=== PATIENT | female | born 1955 | race Caucasian/White ===

== ENCOUNTER → 2017-07-12 13:01 | Outpatient (CLI) | payer MEDICARE, SELFPAY ==
--- NOTE | 2017-07-12 13:04 | BI_ITS ---
MAMMOGRAPHY - BILATERAL SCREENING REASON FOR EXAM: Female, 62 years old. Routine annual screening examination. PERTINENT HISTORY: Mother with breast cancer. History of prior bilateral breast reduction. TECHNIQUE: Digital bilateral breast juliana (3D mammographic acquisition) in the CC and MLO projections. 2-D mediolateral oblique (MLO) and craniocaudad (CC) views of both breasts were obtained. CAD: Full Field Digital Mammography with Computer Added Detection was performed. COMPARISON: Comparison is made with prior study dated February 07, 2016 and February 08, 2015. FINDINGS: Breast Composition: The breasts are heterogeneously dense, which may obscure small masses. There are no dominant masses or suspicious calcifications. No other significant abnormalities are identified. There has been no significant change since the prior study. BI/SCREENING MAMM (CAD), BILAT IMPRESSION: Stable bilateral screening mammogram. Yearly follow-up mammogram recommended. (A) ASSESSMENT CATEGORY: BIRADS Category 1: Negative. A letter regarding these results will be sent to the patient by the facility within 30 days. Approximately 10% of breast cancers are not detected by mammography. A normal mammogram should not delay biopsy of a clinically suspicious abnormality. [id number] Electronically Signed: Bud Ernst MD at 14:17 EDT Tel [phone], Service support ,
== END ==
PROVIDERS: Family Provider Family Medicine; PCP Family Medicine; Visit Provider Family Medicine
DX: Z12.31 Encounter for screening mammogram for malignant neoplasm of breast (principal)
CPT/HCPCS: 77063; 77067

== ENCOUNTER → 2017-08-11 15:58 | Outpatient (CLI) | payer MEDICARE, SELFPAY | PROVIDERS: Family Provider Family Medicine; PCP Family Medicine; Visit Provider Otolaryngology Otolaryngology/Facial Plastic Surgery | DX: J02.9 Acute pharyngitis, unspecified (principal) | CPT/HCPCS: 87070; 87077 ==

== ENCOUNTER → 2018-08-08 | Outpatient (CLI) | payer MEDICARE, SELFPAY ==
--- NOTE | 2018-08-08 16:05 | BI_ITS ---
MAMMOGRAPHY - BILATERAL SCREENING REASON FOR EXAM: Female, 63 years old. Routine annual screening examination. PERTINENT HISTORY: Mother with breast cancer. Remote bilateral breast reduction surgery. TECHNIQUE: Digital bilateral breast maritza (3D mammographic acquisition) in the CC and MLO projections. 2-D mediolateral oblique (MLO) and craniocaudad (CC) views of both breasts were obtained. CAD: Full Field Digital Mammography with Computer Added Detection was performed. COMPARISON: Comparison is made with prior study dated July 12, 2017 and February 07, 2016. FINDINGS: Breast Composition: The breasts are heterogeneously dense, which may obscure small masses. There are no dominant masses or suspicious calcifications. Stable small benign-appearing bilateral axillary lymph nodes. No other significant abnormalities are identified. There has been no significant change since the prior study. BI/SCREEN MAMM (CAD) W/MARITZA BILAT IMPRESSION: Stable bilateral screening mammogram. Yearly follow-up mammogram recommended. (A) ASSESSMENT CATEGORY: BIRADS Category 2: Benign. A letter regarding these results will be sent to the patient by the facility within 30 days. Approximately 10% of breast cancers are not detected by mammography. A normal mammogram should not delay biopsy of a clinically suspicious abnormality. [id number] Electronically Signed: Bud Ernst, at 9:11 EDT , Service support ,
== END | disposition home or self-care (01) ==
LOC: OPBI 16:03
PROVIDERS: Family Provider Family Medicine; PCP Family Medicine; Referring Provider Family Medicine; Visit Provider Family Medicine
DX: Z12.31 Encounter for screening mammogram for malignant neoplasm of breast (principal)
CPT/HCPCS: 77063; 77067

== ENCOUNTER → 2019-08-24 | Outpatient (CLI) | payer MEDICARE, SELFPAY ==
--- NOTE | 2019-08-24 14:35 | BI_ITS ---
MAMMOGRAPHY - BILATERAL SCREENING 3-D TOMOSYNTHESIS REASON FOR EXAM: Female, 64 years old. Routine screening PERTINENT HISTORY: BILAT SCREENING - FAM HX OF MOTHER @ AGE 62 - BILAT REDUCTION 2005 - PT C/O LT BREAST OCCASIONAL PAIN FOR SEVERAL YRS. TECHNIQUE: 2-D mammograms and 3-D Tomosynthesis of the breast (s) were performed. CAD was performed. COMPARISON: 08/08/2018 FINDINGS: The breast composition is heterogeneously dense that can obscure small breast masses. Scattered benign calcifications are seen. No dense spiculated masses or suspicious microcalcifications are identified. No architectural distortion is identified. There is no skin thickening or retraction. There has been no significant change since the prior study. BI/SCREEN MAMM (CAD) W/MARITZA BILAT IMPRESSION: No mammographic signs of malignancy. Routine yearly mammograms recommended. ASSESSMENT CATEGORY: BIRADS Category 2: Benign. A letter regarding these results will be sent to the patient by the facility within 30 days. FOLLOW UP RECOMMENDATION: Yearly follow up mammogram recommended. (A) Approximately 10% of breast cancers are not detected by mammography. A normal mammogram should not delay biopsy of a clinically suspicious abnormality. Electronically Signed: Yves Roth MD at 15:30 EDT , Service support ,
== END | disposition home or self-care (01) ==
LOC: OPBI 14:33
PROVIDERS: PCP Family Medicine; Referring Provider Student in an Organized Health Care Education/Training Program; Visit Provider Student in an Organized Health Care Education/Training Program
DX: Z12.31 Encounter for screening mammogram for malignant neoplasm of breast (principal)
CPT/HCPCS: 77063; 77067

== ENCOUNTER 2020-01-19 07:25 | Day surgery (SDC) | payer MEDICARE, SELFPAY ==
[2020-01-19] VITALS (7 sets, daily range): BP systolic 108–124; BP diastolic 50–101; PULSE 49–60; RESP 16–18; TEMP 36.3–36.9; O2SAT 93–97; BMI 38.8
--- NOTE | 2020-01-19 06:21 | HP_ITS ---
I have re-examined the patient. There are no clinical changes since date of exam. Intake Intake Visit Reasons: Bilat wrists Accompanied by: self Is patient in pain?: Yes Allergies codeine Allergy (Verified 02/18/16 00:23) Chest tightness morphine Allergy (Verified 02/18/16 00:23) Hives NSAIDS (Non-Steroidal Anti-Inflamma Allergy (Verified 02/18/16 00:23) Hives prochlorperazine [From Compazine] Allergy (Verified 02/18/16 00:23) Other promethazine [From Phenergan] Allergy (Verified 02/18/16 00:23) Chest tightness Sulfa (Sulfonamide Antibiotics) Allergy (Verified 02/18/16 00:23) Hives amoxicillin [From Augmentin] Adverse Reaction (Verified 02/18/16 00:23) Abd cramps/diarrhea cephalexin [From Keflex] Adverse Reaction (Verified 02/18/16 00:23) Abd cramps/diarrhea clavulanic acid [From Augmentin] Adverse Reaction (Verified 02/18/16 00:23) Abd cramps/diarrhea steroid injections Adverse Reaction (Severe, Uncoded 01/02/20 14:00) migraines Medications Aspirin 81 mg PO DAILY 02/18/16 [History Confirmed 01/02/20] Calcium 600-Vit D3 200 Tablet 1 tab PO DAILY 02/18/16 [History Confirmed 01/02/20] Colostrum, Bovine [Colostrum] 650 mg PO BID 02/18/16 [History Confirmed 01/02/20] Cyanocobalamin (Vitamin B-12) [Vitamin B-12] 1,000 mcg PO DAILY 02/18/16 [History Confirmed 01/02/20] Flaxseed Oil [[place]-3 Flaxseed Oil] 1,000 mg PO BID 02/18/16 [History Confirmed 01/02/20] Fluoxetine [Prozac] 20 mg PO BID 02/18/16 [History Confirmed 01/02/20] Folic Acid 0.8 mg PO DAILY 02/18/16 [History Confirmed 01/02/20] Lansoprazole [Prevacid] 30 mg PO BID 02/18/16 [History Confirmed 01/02/20] Levothyroxine Sodium [Levoxyl] 75 mcg PO DAILY 02/18/16 [History Confirmed 01/02/20] Lorazepam [Ativan] 0.5 mg PO DAILY PRN PRN 02/18/16 [History Confirmed 01/02/20] Ondansetron [Zofran Odt] 4 mg PO Q8H PRN PRN #10 tab 02/18/16 [Rx Confirmed 01/02/20] Orphenadrine [Norflex ER] 100 mg PO BID 02/18/16 [History Confirmed 01/02/20] Pregabalin [Lyrica] 100 mg PO 4X/DAY 02/18/16 [History Confirmed 01/02/20] [place] Jelly 500 mg PO BID 02/18/16 [History Confirmed 01/02/20] Zolpidem Tartrate [Ambien] 10 mg PO QHS 02/18/16 [History Confirmed 01/02/20] cycloBENZAPRine HCl [Flexeril] 10 mg PO TID PRN PRN 02/18/16 [History Confirmed 01/02/20] PFSH Medical History (Updated 01/02/20 @ 13:15 by Beth Gibbons) Anxiety (Acute) Difficulty sleeping (Acute) Hx of cataract (Acute) Hypothyroidism (Acute) Social History (Updated 01/02/20 @ 14:[address] Hayde Wilkes DO) Smoking Status: Former smoker HPI Bilat wrists: Surgical H&P: Yes Details: Parts of this documentation were recorded by a scribe, this documentation accurately reflects the service provided and the decisions made by me, Dr. Hayde Wilkes DO 01/02/20 1307. MATTIE BERMEO is a 64 year old F here today for BL wrist pain. She had an EMG completed at [facility] on 12/21/2019 and is here to review the results today. Her results showed moderate carpal tunnel on the right and mild on the left. Patient states that she has numbness and tingling into her BL hands into all of her fingers. She tried night splinting but can not sleep at night with the splints on. Does have weakness of her hands and drops things. Denies any surgery or injections of the wrists. States that she is unable to have steroid injections because they cause migraines. ROS Const Reports weakness Musc Denies joint pain, Denies joint swelling, Reports numbness, Reports radiating pain into limb, Reports tingling Skin/Breast Denies redness, Denies lesions, Denies itching, Denies rash, Denies skin swelling Neuro Yes numbness, Yes tingling, Yes weakness Ortho Exam General General: Yes no acute distress Neurologic: Yes alert, Yes oriented x3 Psychologic: Yes reasonable and appropriate Right Wrist/Hand Skin/Wound: No Swelling, No Ecchymosis, Yes capillary refill normal Right Wrist: Yes ROM-Extension 0-60, ROM-Flexion 0-80, ROM-Pronation 0-80, ROM- Supination 0-90, Tinel's, Phalen's and Thenar Atrophy Left Wrist/Hand Skin/Wound: No Swelling, No Ecchymosis, Yes capillary refill normal Left Wrist: Yes ROM-Extension 0-60, Yes ROM-Flexion 0-80, Yes ROM-Pronation 0- 80, Yes ROM-Supination 0-90, Yes Tinel's and Yes Phalen's; no Thenar Atrophy Assessment & Plan Problems 1. Bilateral carpal tunnel syndrome G56.03 Plan Personally reviewed patient EMG of the BL upper extremities. Patient educated that she does have moderate carpal tunnel syndrome of the right and mild on the left. Treatment options are OT or night bracing or injection but this is not recommended because of her migraines or carpal tunnel release. Educated that the recovery period will take about 4 weeks. She will be in a bandage for 2 weeks then she can begin lifting as tolerated. Patient wishes to proceed with right carpal tunnel release. Reviewed the pre-operative plans with the patient. Risks and benefits of the procedure were fully explained, including but not limited to infection, neurovascular injury, continued pain, arthritis, stiffness, need for further surgery, re-injury, DVT, PE, general risks of anesthesia, and loss of limb or life. The patient understands all the risks and does wish to proceed with written consent. We discussed the current risk associated COVID-19. While it is understood that there is a community spread of COVID 19 the risk of veronika COVID-19 while at [facility] is very low, however, the risk cannot be completely mitigated because of the community spread of the disease. We discussed in detail the risk of exposure to and or potential harm posed by the COVID-19 virus with having a surgery/procedure at this time versus the risk of delaying the surgery/procedure. Is not possible to know either the risk of delaying the surgery procedure or chance of getting an infection with perfect accuracy, but a joint decision was made to proceed at this time with a schedule surgery/procedure as indicated on the consent form. Patient was notified that we will need to comply with any screening or testing [facility] wishes to perform or that surgery may be delayed for any positive results. All questions answered. Patient in agreement of plan. Follow up 2 wks postop with sea, or sooner if pain, swelling, numbness or associated symptoms, or concerns develop. Orders Orders: Wrist min 3 Views Today G56.03 Wrist min 3 Views Today G56.03 Coding Level of Care Code Off vis,new,level 3 Diagnoses Bilateral carpal tunnel syndrome G56.03
[2020-01-19] MEDS: Lactated Ringers 1,000 ML 100 ML IV (08:13)
--- NOTE | 2020-01-19 08:46 | PCM.DC.ORTHO ---
Discharge Diet: No Restrictions - leave dressings intact and follow up in 2 weeks, call with concerns Discharge Activity: May Not Drive May shower in (days): 1 Ice area for (Minutes): 20 - Every hour while awake. Weight Bearing Status: Weight bearing as tolerated Keep extremity elevated above heart level: Operative Extremity Call your doctor if your incision/area has: Continuous Slow Oozing, Sudden Increased Bleeding, Increased Pain/ Swelling, Increased Redness, Foul Smelling Discharge Call your doctor if you observe: Fever of 101 or Higher, Coldness, Increased Pain, Numbness or Tingling, Change in Color, Calf discomfort Allergies/Adverse Reactions: Allergies codeine Allergy (Verified 01/19/20 07:50) Chest tightness levothyroxine sodium [From Synthroid] Allergy (Verified 01/19/20 07:50) Itching morphine Allergy (Verified 01/19/20 07:50) Hives NSAIDS (Non-Steroidal Anti-Inflamma Allergy (Verified 01/19/20 07:50) Hives prochlorperazine [From Compazine] Allergy (Verified 01/19/20 07:50) Other promethazine [From Phenergan] Allergy (Verified 01/19/20 07:50) Chest tightness Sulfa (Sulfonamide Antibiotics) Allergy (Verified 01/19/20 07:50) Hives amoxicillin [From Augmentin] Adverse Reaction (Verified 01/19/20 07:50) Abd cramps/diarrhea azithromycin [From Zithromax] Adverse Reaction (Verified 01/19/20 07:50) Nausea/Vom/Diarrhea cephalexin [From Keflex] Adverse Reaction (Verified 01/19/20 07:50) Abd cramps/diarrhea clavulanic acid [From Augmentin] Adverse Reaction (Verified 01/19/20 07:50) Abd cramps/diarrhea levofloxacin [From Levaquin] Adverse Reaction (Verified 01/19/20 07:50) Vomiting methylprednisolone [From Medrol] Adverse Reaction (Verified 01/19/20 07:50) Hives steroid injections Adverse Reaction (Severe, Uncoded 01/19/20 07:50) migraines Medications to take at Discharge Aspirin 81 mg PO DAILY 02/18/16 Calcium 600-Vit D3 200 Tablet 1 tab PO DAILY 02/18/16 Colostrum, Bovine [Colostrum] 650 mg PO BID 02/18/16 Cyanocobalamin (Vitamin B-12) [Vitamin B-12] 1,000 mcg PO DAILY 02/18/16 Flaxseed Oil [[place]-3 Flaxseed Oil] 1,000 mg PO BID 02/18/16 Fluoxetine [Prozac] 20 mg PO BID 02/18/16 Folic Acid 0.8 mg PO DAILY 02/18/16 Lansoprazole [Prevacid] 30 mg PO BID 02/18/16 Levothyroxine Sodium [Levoxyl] 75 mcg PO DAILY 02/18/16 Lorazepam [Ativan] 0.5 mg PO DAILY PRN PRN 02/18/16 Ondansetron [Zofran Odt] 4 mg PO Q8H PRN PRN #10 tab 02/18/16 Orphenadrine [Norflex ER] 100 mg PO BID PRN 02/18/16 Pregabalin [Lyrica] 100 mg PO 4X/DAY 02/18/16 [place] Jelly 500 mg PO BID 02/18/16 Zolpidem Tartrate [Ambien] 5 mg PO QHS 02/18/16 cycloBENZAPRine HCl [Flexeril] 10 mg PO TID PRN PRN 02/18/16 Cetirizine HCl [Zyrtec] 5 mg PO QHS 01/15/20 Primary Care Physician: Anirudh Villalobos DO [Primary Care Provider] - Test Results: Test results from this visit will be discussed in further detail at your follow-up appointment, if applicable. Please Follow Up With: Hayde Wilkes DO - [phone]
--- NOTE | 2020-01-19 08:46 | PCM.OPRPT ---
Report of Operation Date of Procedure: 01/19/20 Pre-Operative Diagnosis: right carpal tunnel syndrom Post-Operative Diagnosis: same Surgery/Procedure Performed:: right carpal tunnel release Type of Anesthesia:: Austin Villalpando Anesthesiologist: Dany Berry Estimated Blood Loss (mL): min Fluids Replaced: 600cc lr Description of Procedure: Preoperative note Patient is a 64 year old patient with nerve conduction study confirming carpal tunnel syndrome. Patient failed conservative treatment for her carpal tunnel elected proceed with right carpal tunnel release. Risks benefits and alternatives surgery discussed with patient. Risks including but not limited to blood loss, blood clot, infection, neurovascular injury, failure procedure, loss of life and loss of limb. Patient is aware like proceed with right carpal tunnel release. Operative note Patient seen and examined preoperative holding area. right hand was marked. History and physical and consent reviewed. Patient was brought to the operating room placed supine on the operating table. Sign in, anesthesia, antibiotics were administered. right upper extremity was prepped and draped after Austin block was initiated. All bony prominences well-padded SCDs placed on bilateral lower extremities. We marked out our incisions for our carpal tunnel release at the intersection of Cayetano's line in the fourth ray flexed. We extended about a centimeter and a half. Timeout was performed. We then checked ensure that the [place] block was working with pickups which it was. We then used a 15 blade to make a skin incision. We then dissected down tenotomy syllable of the transverse carpal ligament. We then used a new 15 blade cut through the transverse carpal ligament down to the level of the median nerve. We then further released the median nerve the combination of the 15 blade and tenotomies. The nerve was grayish in color and adherent to the transverse carpal ligament volarly. We released the transverse carpal ligament distally to the fat pad and then proximally under standard technique. We then palpated to ensure that we released all of the transverse carpal ligament which we did. We irrigated the incision with copious amounts of sterile saline. All bleeders were coagulated. The incision was closed with interrupted 4-0 nylon stitches. Tourniquet was deflated for total working time of 10 minutes. Patient tolerated procedure well there were no complications. Patient transferred to recovery room in stable condition. Postoperative note Hospital pharmacy has prescription Leave dressing clean dry and intact Follow-up in 2 weeks Call with concerns This note was generated with [employer] software. It may contain incorrect words, spelling, and punctuation that were not noted in checking the note before signing
[2020-01-19] MEDS: Mupirocin Ointment 22gm Tube 1 APPLIC (09:13)
[2020-01-19] MEDS: HYDROcodone Bitartrate/Apap 5/325 Tablet PO (11:12)
== END 2020-01-19 12:25 | disposition home or self-care (01) ==
LOC: SDC 07:25 → AC 07:27
PROVIDERS: PCP Student in an Organized Health Care Education/Training Program; Referring Provider Orthopaedic Surgery; Visit Provider Orthopaedic Surgery
PROC: (CPT 64721; principal; 2020-01-19 08:40)
DX: G56.03 Carpal tunnel syndrome, bilateral upper limbs (principal); F41.9 Anxiety disorder, unspecified; F32.9 Major depressive disorder, single episode, unspecified; E03.9 Hypothyroidism, unspecified; M79.7 Fibromyalgia; K58.9 Irritable bowel syndrome, unspecified; K21.9 Gastro-esophageal reflux disease without esophagitis; G47.30 Sleep apnea, unspecified; G25.81 Restless legs syndrome; G43.909 Migraine, unspecified, not intractable, without status migrainosus; Z78.0 Asymptomatic menopausal state; Z87.19 Personal history of other diseases of the digestive system; Z79.82 Long term (current) use of aspirin; Z79.899 Other long term (current) drug therapy; Z87.891 Personal history of nicotine dependence
CPT/HCPCS: 01810; 64721; 87426; C9803; J7120; A4216; J2405

== ENCOUNTER → 2020-09-03 14:45 | Outpatient (CLI) | payer MEDICARE, SELFPAY ==
--- NOTE | 2020-09-03 14:47 | BI_ITS ---
MAMMOGRAPHY - BILATERAL SCREENING REASON FOR EXAM: Female, 65 years old. Routine annual screening examination. PERTINENT HISTORY: Mother with breast cancer. History of prior bilateral breast reduction surgery. TECHNIQUE: Digital bilateral breast maritza (3D mammographic acquisition) in the CC and MLO projections. 2-D mediolateral oblique (MLO) and craniocaudad (CC) views of both breasts were obtained. CAD: Full Field Digital Mammography with Computer Added Detection was performed. COMPARISON: Comparison is made with prior study dated 08/24/2019 and 08/08/2018. FINDINGS: Breast Composition: The breasts are heterogeneously dense, which may obscure small masses. There are no dominant masses or suspicious calcifications. Stable benign-appearing bilateral axillary lymph nodes. No other significant abnormalities are identified. There has been no significant change since the prior study. BI/SCRN MAMM (CAD)W/MARITZA BILAT IMPRESSION: Stable bilateral screening mammogram. Yearly follow-up mammogram recommended. (A) ASSESSMENT CATEGORY: BIRADS Category 2: Benign. A letter regarding these results will be sent to the patient by the facility within 30 days. Approximately 10% of breast cancers are not detected by mammography. A normal mammogram should not delay biopsy of a clinically suspicious abnormality. [id number] Electronically Signed: Bud Ernst MD at 15:44 EDT , Service support ,
== END ==
PROVIDERS: PCP Student in an Organized Health Care Education/Training Program; Referring Provider Student in an Organized Health Care Education/Training Program; Visit Provider Student in an Organized Health Care Education/Training Program
DX: Z12.31 Encounter for screening mammogram for malignant neoplasm of breast (principal)
CPT/HCPCS: 77063; 77067

== ENCOUNTER → 2021-10-02 | Outpatient (CLI) | payer MEDICARE, SELFPAY ==
--- NOTE | 2021-10-02 14:07 | BI_ITS ---
MAMMOGRAPHY - BILATERAL SCREENING 3-D TOMOSYNTHESIS REASON FOR EXAM: Female, 66 years old. Routine screening PERTINENT HISTORY: Mother with breast cancer, previous reduction surgery.. TECHNIQUE: 2-D mammograms and 3-D Tomosynthesis of the breast (s) were performed. CAD was performed. COMPARISON: 08/24/2019 FINDINGS: The breast composition is composed of scattered fibroglandular density. Scattered benign calcifications are seen. No dense spiculated masses or suspicious microcalcifications are identified. No architectural distortion is identified. There is no skin thickening or retraction. There has been no significant change since the prior study. BI/SCRN MAMM (CAD)W/MARITZA BILAT IMPRESSION: No mammographic signs of malignancy. Routine yearly mammograms recommended. ASSESSMENT CATEGORY: BIRADS Category 2: Benign. A letter regarding these results will be sent to the patient by the facility within 30 days. FOLLOW UP RECOMMENDATION: Yearly follow up mammogram recommended. (A) Approximately 10% of breast cancers are not detected by mammography. A normal mammogram should not delay biopsy of a clinically suspicious abnormality. Electronically Signed: Yves Roth MD at 12:55 EDT ,
== END | disposition home or self-care (01) ==
LOC: OPBI 14:06
PROVIDERS: PCP Student in an Organized Health Care Education/Training Program; Referring Provider Student in an Organized Health Care Education/Training Program; Visit Provider Student in an Organized Health Care Education/Training Program
DX: Z12.31 Encounter for screening mammogram for malignant neoplasm of breast (principal); Z80.3 Family history of malignant neoplasm of breast
CPT/HCPCS: 77063; 77067

== ENCOUNTER 2021-10-23 07:18 | Day surgery (SDC) | payer MEDICARE, SELFPAY ==
--- NOTE | 2021-10-21 13:34 | EKG12_ITS ---
Test Reason : PRE-OP Blood Pressure : / mmHG Vent. Rate : 054 BPM Atrial Rate : 054 BPM P-R Int : 190 ms QRS Dur : 094 ms QT Int : 432 ms P-R-T Axes : 022 008 051 degrees QTc Int : 409 ms Sinus bradycardia Borderline Low voltage QRS Confirmed by NOE VILLANUEVA, BETSY ([id number]), newspaper copy editor ANASTASIA YEH ([id number]) on 10/22/2021 11:30:27 AM Referred By: Kelly Mckeon Confirmed By:BETSY LIU MD
[2021-10-21 14:18] LABS: Hematocrit 40.9 % (37-47); Hemoglobin 13.3 g/dL (12.0-15.0); Mean Corp Hgb Conc 32.5 g/dL (32-36); Mean Corpuscular Hgb 29.2 pg (27.0-32.0); Mean Corpuscular Volume 89.7 fL (81-99); Mean Platelet Vol. 10.4 fl (6.2-12.0); Platelet Count 208 K/mm3 (150-450); RBC Distribution Width CV 14.6 % (11.6-14.6); RBC Distribution Width SD 47.9 fl (35.1-43.9); Red Blood Count 4.56 M/mm3 (4.2-5.4); White Blood Count 5.4 K/mm3 (4.4-11.0)
[2021-10-21 14:56] LABS: Anion Gap 4 (5-15); BUN 23 mg/dL (7-18); BUN/Creat Ratio 18.9 RATIO (10-20); Calcium,Total 9.1 mg/dL (8.5-10.1); Chloride 104 mmol/L (98-107); Creatinine, Serum 1.22 mg/dL (0.55-1.02); EST Glomerular Filtration Rate 47 mL/min (>60); Est Glom Filt Rate - Afr Amer 57 mL/min (>60); Glucose 98 mg/dL (74-106); Potassium 4.1 mmol/L (3.5-5.1); Sodium Level 138 mmol/L (136-145); Thyroid Stim Hormone (TSH) 1.81 uIU/mL (0.358-3.74)
[2021-10-23 07:38] VITALS: BP 127/57; PULSE 64; RESP 16; TEMP 36.4; O2SAT 98; BMI 38.7
[2021-10-23] MEDS: Lactated Ringers 1,000 ML 15 ML IV (07:43)
[2021-10-23] MEDS: Cefazolin 2 GM in 0.9% Normal Saline 100 ML IV (08:56)
--- NOTE | 2021-10-23 09:00 | OP.PCM_ITS ---
Report of Operation Date of Procedure: 10/23/21 Pre-Operative Diagnosis: Interstitial cystitis, urinary urgency, urinary freque ncy Post-Operative Diagnosis: Same Surgery/Procedure Performed:: Pelvic exam under anesthesia, cystoscopy, hydrodistension Surgeon: Kelly Mckeon Type of Anesthesia: General Description of Procedure: The patient is a 66-year-old female with a history of interstitial cystitis has been having increasing bladder pain with urgency and frequency. She presents for evaluation for Hunner's ulcers with pelvic exam under anesthesia's, cystoscopy and possible biopsy versus hydrodistention. Informed consent was obtained. The patient was taken to the operating room and placed on the operating room table. Anesthesia monitored the head, neck, airway, IV access and vital signs throughout the case. Once anesthesia was appropriately administered the patient was placed into dorsolithotomy position was prepped and draped in usual sterile fashion. 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 There is no evidence of pelvic organ prolapse. The cystoscope was inserted through the urethra under direct visualization into the urinary bladder. The bladder mucosa was visualized in its entirety revealing no evidence of Lukas's ulcers, areas of erythema, ulceration, mass or foreign body. The bladder was filled to capacity and allowed to sit for 2 minutes. The bladder was then emptied and measured at 800 cc capacity with no terminal hematuria identified. Upon reentry into the urinary bladder, there were a few glomerulations present. The bladder was then once again filled to capacity and allowed to sit for 2 minutes before being emptied. Capacity was measured to be approximately 850 cc. At this time the pa tient was awakened and taken to the recovery room in good condition. There were no complications during this procedure. Grafts/Implants Used: None Complications None Admit VTE Documentation VTE Present on Admission: Yes VTE Mechan Device Prophylaxis: SCD's VTE Pharm Prophylaxis ordered?: Yes
[2021-10-23 09:31] VITALS: BP 127/57; BP 137/82; PULSE 59; RESP 16; TEMP 36.4; O2SAT 97
[2021-10-23 09:45] VITALS: BP 127/57; BP 127/64; PULSE 55; RESP 16; O2SAT 96
--- NOTE | 2021-10-23 09:50 | DCINST_ITS ---
Discharge Instructions Diet Discharge Diet: No restrictions Activity Discharge Activity: Return to Normal Activity May resume sexual activity in: No Restrictions Dressing / Incision Call your doctor if you observe: Fever of 101 or Higher, Inability to urinate and Inability to have a bowel movement Follow Up Care Please Follow Up With: Kelly Mckeon MD When: call office to be seen in 2 weeks Test Results: Test results from this visit will be discussed in further detail at your follow- up appointment, if applicable. Discharge Plan Admission Attending Provider: Kelly Mckeon Primary Care Provider: Anirudh Villalobos Discharge Orders/Prescriptions Prescriptions: New phenazopyridine [Pyridium] 200 mg tablet 200 mg PO TID PRN PRN (Reason: Bladder Spasms) 7 Days Qty: 30 0RF nitrofurantoin monohyd/m-cryst [Macrobid] 100 mg capsule 100 mg PO BID Qty: 6 0RF Rx Instructions: must administer with a meal/food Continued cyclobenzaprine 10 MG tablet 10 mg PO TID PRN PRN (Reason: Spasms) cyanocobalamin (vitamin B-12) 1,000 MCG tablet 1,000 mcg PO DAILY levothyroxine 75 MCG tablet 75 mcg PO DAILY flaxseed oil 1,000 MG capsule 1,000 mg PO BID lorazepam 0.5 MG tablet 0.5 mg PO DAILY PRN PRN (Reason: Anxiety) lansoprazole 30 MG capsule 30 mg PO BID orphenadrine citrate 100 MG tablet 100 mg PO BID PRN (Reason: headaches) aspirin 81 MG tablet,chewable 81 mg PO DAILY Label Comments: states was not told to stop preop zolpidem 10 MG tablet 5 mg PO QHS fluoxetine 20 MG capsule 20 mg PO BID pregabalin 100 MG capsule 150 mg PO TID folic acid 0.8 MG capsule 0.8 mg PO DAILY royal jelly 500 MG capsule 500 mg PO DAILY colostrum, bovine 500 MG capsule 650 mg PO BID Calcium 600-Vit D3 200 Tablet 600 MG 1 tab PO DAILY cetirizine 10 MG capsule 5 mg PO QHS acetylcysteine [NAC] 600 mg Capsule 600 mg PO DAILY pravastatin 10 mg Tablet 5 mg PO QODAY Tremfya 100 mg/mL Auto-Injector 100 mg SUBCUT .QOTHERMO Referrals / Follow Up: Anirudh Villalobos DO [Primary Care Provider] - Disposition Disposition (needs filled in before D/C Order can be placed): Home, Self Care
[2021-10-23 10:00] VITALS: BP 127/57; BP 127/64; PULSE 52; RESP 16; O2SAT 98
[2021-10-23 10:15] VITALS: BP 123/59; BP 127/57; PULSE 50; RESP 16; TEMP 36.4; O2SAT 92
[2021-10-23] MEDS: Phenazopyridine 95 MG Tablet 190 MG PO (10:51)
[2021-10-23 11:15] VITALS: BP 101/66; BP 127/57; PULSE 52; RESP 16; TEMP 35.7; O2SAT 94
== END 2021-10-23 11:31 | disposition home or self-care (01) ==
LOC: SDC 07:19 → AC 07:23
PROVIDERS: Anesthesiology; PCP Student in an Organized Health Care Education/Training Program; Referring Provider Urology; Visit Provider Urology
PROC: 0TBB8ZX Excision of Bladder, Via Natural or Artificial Opening Endoscopic, Diagnostic (ICD-10-PCS; CPT 52260; principal; 2021-10-23 08:55)
DX: N30.10 Interstitial cystitis (chronic) without hematuria (principal); N95.2 Postmenopausal atrophic vaginitis; N39.43 Post-void dribbling; R39.15 Urgency of urination; R35.0 Frequency of micturition; L90.0 Lichen sclerosus et atrophicus; E03.9 Hypothyroidism, unspecified; G47.30 Sleep apnea, unspecified; Z96.82 Presence of neurostimulator; Z79.899 Other long term (current) drug therapy; Z87.891 Personal history of nicotine dependence
CPT/HCPCS: 52260; 00910; 36415; 80048; 84443; 85027; 93005; J7120; J2405

== ENCOUNTER → 2023-10-28 | Outpatient (CLI) | payer MEDICARE, SELFPAY ==
--- NOTE | 2023-10-28 13:15 | BI_ITS ---
MAMMOGRAPHY - BILATERAL SCREENING REASON FOR EXAM: Female, 68 years old. Routine annual screening examination. PERTINENT HISTORY: Mother with breast cancer. History of bilateral breast reduction surgery. TECHNIQUE: Digital bilateral breast maritza (3D mammographic acquisition) in the CC and MLO projections. 2-D mediolateral oblique (MLO) and craniocaudad (CC) views of both breasts were obtained. CAD: Full Field Digital Mammography with Computer Added Detection was performed. COMPARISON: Comparison is made with prior outside examination dated October 22, 2022 and October 02, 2021. FINDINGS: Breast Composition: The breasts are heterogeneously dense, which may obscure small masses. There are no dominant masses or suspicious calcifications. Stable small benign appearing bilateral axillary lymph nodes. No other significant abnormalities are identified. There has been no significant change since the prior study. BI/SCRN MAMM (CAD)W/MARITZA BILAT IMPRESSION: Stable bilateral screening mammogram. Yearly follow-up mammogram recommended. (A) ASSESSMENT CATEGORY: BIRADS Category 2: Benign. A letter regarding these results will be sent to the patient by the facility within 30 days. Approximately 10% of breast cancers are not detected by mammography. A normal mammogram should not delay biopsy of a clinically suspicious abnormality. [id number] Electronically Signed: Bud Ernst MD at 14:13 EDT ,
== END | disposition home or self-care (01) ==
LOC: OPBI 13:14
PROVIDERS: PCP Student in an Organized Health Care Education/Training Program; Referring Provider Student in an Organized Health Care Education/Training Program; Visit Provider Student in an Organized Health Care Education/Training Program
DX: Z12.31 Encounter for screening mammogram for malignant neoplasm of breast (principal); Z80.3 Family history of malignant neoplasm of breast
CPT/HCPCS: 77063; 77067

== ENCOUNTER → 2024-09-04 | Outpatient (CLI) | payer MEDICARE, SELFPAY ==
[2024-09-06 17:08] LABS: QNTFERON TB Mitogen Value > 10.00 IU/mL (.); QNTFERON TB Nil Value 0.03 IU/mL (.); QNTFERON TB1+ Ag Value 0.04 IU/mL (.); QNTFERON TB2+ Ag Value 0.04 IU/mL (.); QNTIFERON TB Positive Criteria Negative (Negative)
== END | disposition home or self-care (01) ==
LOC: MTLAB 14:54
PROVIDERS: PCP Student in an Organized Health Care Education/Training Program; Referring Provider Physician Assistant Medical; Visit Provider Physician Assistant Medical
DX: L40.0 Psoriasis vulgaris (principal)
CPT/HCPCS: 36415; 86480

== ENCOUNTER → 2024-11-27 | Outpatient (CLI) | payer MEDICARE, SELFPAY ==
--- NOTE | 2024-11-27 13:12 | BI_ITS ---
EXAM: SCRN MAMM (CAD)W/MARITZA BILAT DATE: 11/27/2024 CLINICAL HISTORY: F, Age 69 y/o , SCREENING TECHNIQUE: Procedure Code: [id number] Modality: MG Procedure: SCRN MAMM (CAD)W/MARITZA BILAT COMPARISON: Prior exam(s) dated 10/28/2023 and 10/02/2021. FINDINGS: TISSUE DENSITY: There are scattered areas of fibroglandular density. Bilateral Breast Mammographic Findings: No significant masses, calcifications or other abnormalities are identified. Benign-appearing round microcalcifications are seen in both breasts. BI/SCRN MAMM (CAD)W/MARITZA BILAT IMPRESSION: Benign screening mammogram. OVERALL FINAL ASSESSMENT BI-RADS 2: BENIGN RECOMMENDATION: Routine annual follow-up in 1 Year Additional Recommendation none A letter with findings and recommendations will be mailed to the patient. Reading Location: [id number]
== END | disposition home or self-care (01) ==
LOC: OPBI 13:11
PROVIDERS: PCP Student in an Organized Health Care Education/Training Program; Referring Provider Student in an Organized Health Care Education/Training Program; Visit Provider Student in an Organized Health Care Education/Training Program
DX: Z12.31 Encounter for screening mammogram for malignant neoplasm of breast (principal)
CPT/HCPCS: 77063; 77067